=== PATIENT | male | born 1950 | race African-American/Black ===

== ENCOUNTER 2018-05-21 01:02 | Inpatient (IN) | payer OTHER ==
[~2018-05-21] VITALS: Ht 188 cm; Wt 72.6 kg
[2018-05-21 01:10] VITALS: BP 146/93
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
--- NOTE | 2018-05-21 01:10 | NUR ---
BIB WHEELCHAIR TO ER BED 11
[2018-05-21] MEDS ORDERED: NACL 0.9% 1,000 ML IV SCH ×2 (01:22→04:40)
[2018-05-21 01:45] LABS: BASOPHILS % (AUTO) 0.4 % (0.0-2.0); EOSINOPHILS # (AUTO) 0.1 K/uL (0-0.4); EOSINOPHILS % (AUTO) 1.8 % (0.0-4.0); HEMATOCRIT 39.6 % (36-52); HEMOGLOBIN 13.2 g/dL (12.0-18.0); LYMPHOCYTES % (AUTO) 35.5 % (20.5-51.1); MEAN CORPUSCULAR HEMOGLOBIN 28 pg (27-31); MEAN CORPUSCULAR HGB CONC 33 g/dL (33-37); MEAN CORPUSCULAR VOLUME 82.7 fL (80-94); MONOCYTES # (AUTO) 0.3 K/uL (0.8-1.0); MONOCYTES % (AUTO) 5.7 % (1.7-9.3); NEUTROPHILS # (AUTO) 3.2 K/uL (1.8-7.7); NEUTROPHILS % (AUTO) 56.6 % (42.2-75.2); PLATELET COUNT (AUTO) 234 K/uL (140-450); RED BLOOD CELL COUNT(AUTO) 4.79 MIL/uL (4.20-6.10); RED CELL DISTRIBUTION WIDTH 14.9 % (11.6-13.7); WHITE BLOOD COUNT (AUTO) 5.7 K/uL (4.8-10.8)
--- NOTE | 2018-05-21 01:45 | NUR ---
PT TAKEN TO CT
--- NOTE | 2018-05-21 02:09 | NUR ---
EKG PERFORMED AT BEDSIDE. PT COVERED IN GOWN AND BLANKET DURING PROCEDURE
[2018-05-21 02:11] LABS: ACETAMINOPHEN < 0.5 ug/ml (10-30); ALBUMIN 3.6 g/dL (3.4-5.0); ANION GAP 11.9 (8-16); ASPARTATE AMINOTRANSFERASE 19 U/L (15-37); CHLORIDE 101 mmol/L (98-107); CREATININE 1.2 mg/dL (0.7-1.3); GFR ARICAN-AMERICAN 78 mL/min (>90); GLUCOSE 95 mg/dL (74-106); POTASSIUM 3.9 mmol/L (3.5-5.1); SALICYLATE 5.8 mg/dL (2.8-20.0); SODIUM SERUM 135 mmol/L (136-145); TOTAL BILIRUBIN 0.2 mg/dL (0.0-1.0); UREA NITROGEN, BLOOD 20 mg/dL (7-18)
[2018-05-21 02:16] LABS: BARBITURATE, URINE NEG. ng/ml (NEG <=200); BENZODIAZEPINE, URINE NEG. ng/mL (NEG <=200); CANNABINOID, URINE NEG. ng/mL (NEG <=50); COCAINE, URINE NEG. ng/mL (NEG <=300); OPIATE, URINE NEG. ng/mL (NEG <=2000)
[2018-05-21 02:22] LABS: APPEARANCE,URINE CLEAR (CLEAR); BILIRUBIN,URINE NEGATIVE (NEGATIVE); BLOOD, URINE NEGATIVE (NEGATIVE); COLOR,URINE YELLOW (YELLOW); LEUKOCYTE ESTERASE ,URINE NEGATIVE (NEGATIVE); NITRITE, URINE NEGATIVE (NEGATIVE); UGLUCOSE NEGATIVE (NEGATIVE)
[2018-05-21 02:23] LABS: PHENCYCLIDINE SCREEN,URINE NEG. ng/mL (NEG <=25)
[2018-05-21 04:05] VITALS: BP 139/93
--- NOTE | 2018-05-21 04:05 | NUR ---
Patient will be admitted to care of [facility]. Admited to TELE. Will go to room 124A. Belongings list completed. Report to ANDREZ LOUIS.
--- NOTE | 2018-05-21 04:05 | NUR ---
PT ARRIVED ON UNIT VIA [facility] WITH ER NURSE AND TECH. PT AMBULATED FROM [facility] INTO BED. PT IN STABLE CONDITION. PT ACCOMPANIED BY . PT IS AAOX4. PT IS ON RA. IV ACCESS IN L AC 18G. IV IS PATENT AND INTACT. FALL PRECAUTIONS INITIATED. MRSA SWAB COLLECTED. PT ORIENTED TO USE OF CALL LIGHT AND ROOM. BED IS LOCKED, LOW POSITION WITH SIDE RAILS UP X2. BOARD UPDATED. CALL LIGHT IS WITHIN REACH. WILL CONTINUE TO MONITOR PT.
[2018-05-21] MEDS ORDERED: CAR30 PO (04:35)
[2018-05-21] MEDS ORDERED: CLON0.1T42 PO (04:35)
[2018-05-21] MEDS ORDERED: HYDR-5123 PO (04:35)
[2018-05-21] MEDS ORDERED: HYDROcodone/APAP 7.5/325 MG 1 TAB PO PRN ×2 (04:40→04:45)
[2018-05-21] MEDS ORDERED: ACETAMINOPHEN 325 MG TAB PO PRN (04:40)
[2018-05-21] MEDS ORDERED: ONDANSETRON 4 MG/2 ML VIAL IVP PRN (04:40)
[2018-05-21] MEDS ORDERED: hydrALAZINE 20 MG/ML VIAL IVP PRN (04:45)
[2018-05-21] MEDS ORDERED: OMEP20TC12 PO (04:46)
--- NOTE | 2018-05-21 05:12 | NUR ---
ORDERED BAG OF IVF STARTED. PT RESTING IN BED COMFORTABLY. NO SIGNS OR SYMPTOMS OF DISTRESS. WILL CONTINUE TO MONITOR.
[2018-05-21 05:24] LABS: FREE T4 (FREE THYROXINE) 1.03 ng/dL (0.76-1.46); MAGNESIUM 1.7 mg/dL (1.8-2.4); PHOSPHORUS 3.7 mg/dL (2.5-4.9); THYROID STIMULATING HORMONE 0.79 uIU/mL (0.34-3.74)
[2018-05-21 05:27] LABS: PROTHROMBIN TIME 10.1 secs (10.8-13.4)
--- NOTE | 2018-05-21 06:36 | NUR ---
ADMINISTERED SCHEDULED MEDICATION. PT TOLERATED WELL. NO SIGNS OR SYMPTOMS OF DISTRESS. WILL CONTINUE TO MONITOR.
--- NOTE | 2018-05-21 07:22 | NUR ---
ENDORSED PT TO DAY SHIFT NURSE FOR CONTINUITY OF CARE. PT IN STABLE CONDITION.
--- NOTE | 2018-05-21 07:23 | NUR ---
REPORT RECEIVED FROM HEAD OF STORE OPERATIONS NURSE, PT SLEEPING QUIETLY IN NAD, AROUSES EASILY TO VOICE, RESP EVEN UNLABORED, SKIN WARM DRY COLOR WNL, PT DENIES PAIN OR DISCOMFORT, PT DENIES ANY IMMEDIATE NEEDS, PLAN OF CARE REVIEWED, ALL SAFETY MEASURES IN PLACE, WILL CONTINUE TO MONITOR.
[2018-05-21] MEDS ORDERED: PANTOPRAZOLE 40 MG TABEC PO SCH (07:30)
[2018-05-21 08:00] VITALS: BP 134/88
--- NOTE | 2018-05-21 08:00 | NUR ---
PT WANTS TO LEAVE AMA, DR CARMONA DISCUSSED RISKS WITH PT, PT VERBALIZED FULL UNDERSTANDING, SIGNED AMA FORM, AWAITING FOR TO PICK HIM UP.
[2018-05-21] MEDS ORDERED: NICOTINE TRANSD SYS 21 MG/24 HR PATCH TD SCH (09:00)
[2018-05-21] MEDS ORDERED: LISINOPRIL 5 MG TAB PO SCH (09:00)
[2018-05-21] MEDS ORDERED: ECOTRIN 81 MG TABEC PO SCH (09:00)
[2018-05-21] MEDS ORDERED: MAGNESIUM OXIDE 400 MG TAB PO SCH (09:00)
[2018-05-21] MEDS ORDERED: ATORVASTATIN 20 MG TAB PO SCH (09:00)
[2018-05-21] MEDS ORDERED: DILTIAZEM 30 MG TAB PO SCH (09:00)
[2018-05-21] MEDS ORDERED: DOCUSATE SODIUM 100 MG GELCAP PO SCH (09:00)
--- NOTE | 2018-05-21 10:08 | NUR ---
MARK AT BEDSIDE, IV DC'D, CATH TIP INTACT, BLEEDING CONTROLLED, PT UP OUT OF BED WITH MINIMAL ASSIST, TRANSFERRED TO WHEEL CHAIR, ESCORTED OUT TO FRONT LOBBY WITH FAMILY.
--- NOTE | 2018-05-22 10:53 | NUR ---
RECEIVED CALL ON MY PHONE FROM ANNA FROM [facility] REQUESTING CLINICALS. I FAXED THE ER REPORT, H&P AND DISCHARGE SUMMARY TO ANNA AT [phone] PHONE [phone]. REF NUMBER A [id number], [employer] D[employer] INTER[employer]TER AWARE OF REF. NUMBER.
== END 2018-05-21 10:00 | disposition left against medical advice (07) | DRG 641 ==
LOC: MED 01:02 → MTU 03:34
PROVIDERS: ADMIT General Practice; ATTEND General Practice
DX: E87.1 Hypo-osmolality and hyponatremia (principal); I24.9 Acute ischemic heart disease, unspecified; F10.129 Alcohol abuse with intoxication, unspecified; K21.9 Gastro-esophageal reflux disease without esophagitis; F17.200 Nicotine dependence, unspecified, uncomplicated; M54.9 Dorsalgia, unspecified; G89.29 Other chronic pain; S09.90XA Unspecified injury of head, initial encounter; W18.39XA Other fall on same level, initial encounter; Y93.01 Activity, walking, marching and hiking; Y92.59 Other trade areas as the place of occurrence of the external cause; Y99.8 Other external cause status
CPT/HCPCS: 36415; 70450; 71045; 80053; 80305; 81003; 82140; 82150; 83036; 83690; 83735; 83880; 84100; 84439; 84443; 84484; 85025; 85610; 85730; 87081; 93005; 96360; 99285; G0480; G0482; J7030; Q0092